=== PATIENT | female | born 1960 | race Caucasian/White ===

== ENCOUNTER 2018-05-19 08:21 | Emergency (ER) | payer MEDICAID ==
[~2018-05-19] VITALS: Ht 157.5 cm; Wt 144.4 kg
[2018-05-19 08:24] VITALS: BP 176/87
[2018-05-19] MEDS ORDERED: LISI-170 PO (08:57)
[2018-05-19] MEDS ORDERED: LIDOCAINE-MPF 2%, 2ML ONE (09:23)
[2018-05-19] MEDS ORDERED: LIDOCAINE-MPF 1%, 5ML INFIL ONE (09:30)
[2018-05-19] MEDS ORDERED: PENICILLIN VK 500MG TABLET ONE (10:27)
[2018-05-19] MEDS ORDERED: HYDROcodone/APAP 5/325 TABLET ONE (10:27)
[2018-05-19] MEDS ORDERED: ONDANSETRON ODT 4 MG ONE (10:27)
[2018-05-19] MEDS ORDERED: HYDROcodone/APAP 5/325 TABLET PO ONE (10:30)
[2018-05-19] MEDS ORDERED: ONDANSETRON ODT 8 MG ONE (10:30)
[2018-05-19] MEDS ORDERED: ONDANSETRON ODT 8 MG PO ONE (10:30)
[2018-05-19] MEDS ORDERED: PENICILLIN VK 500MG TABLET PO SCH (10:30)
[2018-05-19] MEDS ORDERED: PENICILLIN VK 500MG TABLET PO ONE (11:00)
== END 2018-05-19 10:53 | disposition home or self-care (01) ==
LOC: ED 10:47
DX: K02.9 Dental caries, unspecified (principal); K08.89 Other specified disorders of teeth and supporting structures; L02.01 Cutaneous abscess of face; I10 Essential (primary) hypertension
CPT/HCPCS: 10060; 99284; Q0162

== ENCOUNTER 2020-08-28 20:26 | Emergency (ER) | payer MEDICAID ==
[~2020-08-28] VITALS: Ht 157.5 cm; Wt 131.5 kg
[~2020-08-28 20:26] MED LIST: LISI-170 PO
--- NOTE | 2020-08-28 20:38 | NUR ---
SUPERVISOR WOUND: EKG DONE IN TRIAGE
--- NOTE | 2020-08-28 21:19 | NUR ---
MOLECULAR PATHOLOGIST: PT. TO ROOM FROM LOBBY AT THIS TIME.
--- NOTE | 2020-08-28 21:25 | NUR ---
PT REPORTS BEING SEEN WEDNESDAY 08/[address] [facility] FOR SIMILAR SYMPTOMS. PT SAYS SHE FEELS WORSE, SHE GOT COVID TESTED THERE WITHOUT RESULTS AT THIS TIME. STATES "I JUST WANT TO BE ABLE TO GO HOME AND NOT FEEL LIKE IM DYING". EVEN AND UNLABORED RESPIRATIONS AT THIS TIME, GROSS NEURO INTACT. PT BACK TO ROOM, RESTING ON GURNEY, NAD, COUGHING OCCASSIONALLY NOTED. PT PLACED ON SPO2/BP/ECG MONITORING AT THIS TIME, BED IN LOWEST, CALL LIGHT ON LAP, WCTM. WAITING ON LAB AND RAD RESULTS. LAB AT BS
[2020-08-28 21:47] LABS: BASOPHILS % (AUTO) 1 % (0-1); EOSINOPHILS % (AUTO) 2 % (1-7); LYMPHOCYTES % (AUTO) 25 % (22-44); MEAN CORPUSCULAR HEMOGLOBIN 30.8 pg (27.0-34.8); MEAN PLATELET VOLUME 7.4 fL (7.4-10.4); MONOCYTES % (AUTO) 9 % (2-9); NEUTROPHILS % (AUTO) 64 % (42-75); PLATELET COUNT 327 x10^3/uL (130-400); RED BLOOD COUNT 4.22 x10^6/uL (3.82-5.3); RED CELL DISTRIBUTION WIDTH 13.4 % (9.6-15.2)
[2020-08-28 21:49] LABS: MD NO
[2020-08-28 22:20] LABS: TROPONIN I < 0.015 ng/mL (0.000-0.045)
[2020-08-28 22:23] LABS: ALANINE AMINOTRANSFERASE 42 U/L (12-78); ALBUMIN 2.9 g/dL (3.4-5.0); ALKALINE PHOSPHATASE 119 U/L (45-117); ANION GAP 6 mmol/L (5-15); BILIRUBIN,TOTAL 0.3 mg/dL (0.2-1.0); CALCIUM 9.7 mg/dL (8.5-10.1); CHLORIDE 107 mmol/L (98-107); CREATININE 0.93 mg/dL (0.55-1.02); TOTAL PROTEIN 7.9 g/dL (6.4-8.2)
[2020-08-28] MEDS ORDERED: METF500T27 PO (22:26)
[2020-08-28] MEDS ORDERED: BENZ-17 PO (22:26)
[2020-08-28] MEDS ORDERED: LOVA10TA PO (22:26)
[2020-08-28] MEDS ORDERED: ALBU18HF INH (22:26)
[2020-08-28] MEDS ORDERED: CYAN500T18 PO (22:26)
[2020-08-28] MEDS ORDERED: LISI-170 PO (22:26)
[2020-08-28] MEDS ORDERED: DOCU240C53 PO (22:26)
--- NOTE | 2020-08-28 22:26 | NUR ---
PT RESTING ON GURNEY, NAD, APPEARS COMFORTABLE, PROVIDED WARM BLANKET FOR ADDITIONAL COMFORT, BED IN LOWEST, CALL LIGHT ON LAP, WATCHING TV, DENIES ADDITIONAL QUESTIONS OR NEEDS AT THIS TIME. BREEZY.
--- NOTE | 2020-08-28 22:58 | NUR ---
PT NAD, RESTING ON GURNEY, LIGHTS DIMMED FOR COMFORT, EVEN AND UNLABORED RESPIRATIONS, UP FOR RECHECK, BED IN [facility], WCTM.
--- NOTE | 2020-08-28 23:25 | NUR ---
MARY CROWDER ERP AT BS, PT UPDATED ON POC, NAD, DENIES ADDITIONAL QUESTIONS OR NEEDS AT THIS TIME, NO CHANGE IN CONDITION, WCTM. WAITING FOR CTA
--- NOTE | 2020-08-29 00:12 | NUR ---
PT BACK FROM CT, NAD, RESTING ON GURNEY, NO CHANGE IN CONDITION, WAITING FOR RESULTS. WCTM.
[2020-08-29] MEDS ORDERED: OMNIPAQUE 350 MG/ML, 100ML BOTTLE ONE (00:19)
[2020-08-29 00:46] VITALS: BP 128/75
--- NOTE | 2020-08-29 01:00 | NUR ---
Patient given discharge instructions and they have confirmed that they understand the instructions. Patient ambulatory with steady gait. NAD, DENIES ADDITIONAL QUESTIONS OR NEEDS, NO PERSONAL BELONGINGS LEFT IN ROOM AT TIME OF DC.
== END 2020-08-29 01:38 | disposition home or self-care (01) ==
LOC: ED 20:56
DX: J12.9 Viral pneumonia, unspecified (principal); R06.02 Shortness of breath; R94.31 Abnormal electrocardiogram [ECG] [EKG]; I10 Essential (primary) hypertension; E11.9 Type 2 diabetes mellitus without complications; E78.5 Hyperlipidemia, unspecified; J45.909 Unspecified asthma, uncomplicated
CPT/HCPCS: 36415; 71045; 71275; 80053; 84484; 85025; 85379; 93005; 99285; Q9967